=== PATIENT | male | born 1995 | race Caucasian/White ===

== ENCOUNTER 2017-09-28 23:19 | Emergency (ER) | payer BC, OTHER ==
[~2017-09-28] VITALS: Ht 182.9 cm; Wt 74.8 kg
[2017-09-28 23:30] VITALS: BP 156/68
[2017-09-28] MEDS ORDERED: MORPHINE SULFATE INJ 4 MG/ML DISP.SYRIN ONE (23:40)
[2017-09-28] MEDS ORDERED: ONDANSETRON 4 MG TAB.RAPDIS ONE (23:40)
[2017-09-29] MEDS ORDERED: ONDANSETRON 4 MG TAB.RAPDIS SL ONE
[2017-09-29] MEDS ORDERED: MORPHINE SULFATE INJ 2 MG/ML DISP.SYRIN IM ONE
[2017-09-29] MEDS ORDERED: NAPROXEN 250 MG TABLET ONE (01:20)
[2017-09-29] MEDS ORDERED: NAPROXEN 500 MG TABLET PO SCH (01:30)
== END 2017-09-29 01:24 | disposition home or self-care (01) ==
LOC: ER 23:23
DX: S39.011A Strain of muscle, fascia and tendon of abdomen, initial encounter (principal); M89.8X6 Other specified disorders of bone, lower leg; Z98.890 Other specified postprocedural states; X58.XXXA Exposure to other specified factors, initial encounter; Y93.11 Activity, swimming; Y92.34 Swimming pool (public) as the place of occurrence of the external cause; Y99.8 Other external cause status
CPT/HCPCS: 73140; 73502; 96372; 99284; A4606; J2270; J7030; Q0162; Z7610 ×2

== ENCOUNTER 2020-06-13 21:38 | Emergency (ER) | payer OTHER ==
[~2020-06-13] VITALS: Ht 182.9 cm; Wt 70.3 kg
--- NOTE | 2020-06-13 21:50 | NUR ---
Pt bibself c/o bleeding forehead s/p hitting head on pole. Pt aaox4 breathing evenly and unlabored. Bleeding well controlled with pressure being applled to site. Lac appears to be about 3cm in length. pt skin warm, dry, and intact. Pt attached to monitor and pox. Pt given blanket and call light within reach. Will continue to monitor.
[2020-06-13] MEDS ORDERED: TDAP [DIPH/PERTUSSIS/TET] 0.5 ML VIAL IM ONE ×3 (21:58→22:11)
[2020-06-13] MEDS ORDERED: LIDOCAINE 1%-EPI 1:100,000 20 ML VIAL ONE ×2 (21:58→22:11)
[2020-06-13] MEDS ORDERED: LIDOCAINE 1%-EPI 1:100,000 50 ML VIAL IJ ONE (22:00)
--- NOTE | 2020-06-13 22:10 | NUR ---
PA at bedside for procedure
[2020-06-13] MEDS ORDERED: BENZOIN COMPOUND TINCT 60 ML BOTTLE ONE (22:37)
--- NOTE | 2020-06-13 22:59 | NUR ---
Patient discharged to home in stable condition. Written and verbal after care instructions given. Patient verbalizes understanding of instruction.Pt ambulatory with a steady gait
[2020-06-13 23:00] VITALS: BP 120/95
== END 2020-06-13 22:59 | disposition home or self-care (01) ==
LOC: ER 21:38
DX: S01.81XA Laceration without foreign body of other part of head, initial encounter (principal); Z98.890 Other specified postprocedural states; W22.8XXA Striking against or struck by other objects, initial encounter; Y93.64 Activity, baseball; Y92.320 Baseball field as the place of occurrence of the external cause; Y99.8 Other external cause status
CPT/HCPCS: 12052; 90471; 90715; 99284; J3490 ×3